=== PATIENT | male | born 1935 | race Caucasian/White ===

== ENCOUNTER 2020-12-10 09:20 | Emergency (ER) | payer MEDICARE ==
[~2020-12-10] VITALS: Ht 167.6 cm; Wt 77.3 kg
[2020-12-10 09:48] LABS: GLUCOSE,POINT OF CARE 425 MG/DL (70-110)
[2020-12-10] MEDS ORDERED: SODIUM CHLORIDE 0.9% 2,000 ML IV ONE (10:00)
[2020-12-10] MEDS ORDERED: INSULIN REGULAR, HUMAN 100 UNITS/ML IVP ONE (10:00)
[2020-12-10 10:10] LABS: BASOPHILS % (AUTO) 0.5 % (0.0-2.0); EOSINOPHILS % (AUTO) 2.1 % (1.0-6.0); HEMATOCRIT 39.7 % (41-53); LYMPHOCYTES # (AUTO) 2.2 K/uL (1.0-4.8); LYMPHOCYTES % (AUTO) 13.1 % (22.0-44.0); MEAN CORPUSCULAR HEMOGLOBIN 29.3 pg (26.0-34.0); MEAN CORPUSCULAR HGB CONC 32.6 G/dL (31.0-37.0); MEAN CORPUSCULAR VOLUME 90 fL (80-100); MONOCYTES # (AUTO) 1.1 K/uL (0.1-1.0); MONOCYTES % (AUTO) 6.3 % (2.0-9.0); NEUTROPHILS # (AUTO) 13.1 K/uL (1.8-7.7); PLATELET COUNT (AUTO) 155 K/uL (150-450); RED BLOOD CELL COUNT(AUTO) 4.42 MIL/uL (4.50-5.90)
[2020-12-10 10:28] LABS: ALANINE AMINOTRANSFERASE 34 U/L (12-78); ALBUMIN 3.4 g/dL (3.4-5.0); ALKALINE PHOSPHATASE 56 U/L (46-116); ANION GAP 8 mmol/L (8-16); ASPARTATE AMINOTRANSFERASE 14 U/L (15-37); BILIRUBIN,TOTAL 0.3 mg/dL (0.1-1.0); CALCIUM, TOTAL 8.9 mg/dL (8.8-10.5); CARBON DIOXIDE 25 mmol/L (22-29); CHLORIDE 99 mmol/L (98-107); CREATININE 1.51 mg/dL (0.60-1.30); GLOMERULAR FILTR. RATE CALC 44 mL/min (>60); GLUCOSE,RANDOM 394 mg/dL (70-110); LIPASE 124 U/L (73-393); POTASSIUM 3.6 mmol/L (3.5-5.1); SODIUM SERUM 132 mmol/L (136-145); UREA NITROGEN, BLOOD 30 mg/dL (7-18)
[2020-12-10 11:00] LABS: ACETONE,BLOOD NEGATIVE (NEGATIVE)
[2020-12-10 11:10] LABS: GLUCOSE,POINT OF CARE 255 MG/DL (70-110)
[2020-12-10 11:54] VITALS: BP 110/72
[2020-12-10 12:47] LABS: GLUCOSE,POINT OF CARE 249 MG/DL (70-110)
[2020-12-10 13:33] LABS: APPEARANCE,URINE CLEAR (CLEAR); BILIRUBIN,URINE NEGATIVE (NEGATIVE); GLUCOSE, URINE (UA) >=1000 mg/dL (NEGATIVE); KETONES,URINE NEGATIVE (NEGATIVE); LEUKOCYTE ESTERASE ,URINE NEGATIVE (NEGATIVE); NITRATE,URINE NEGATIVE (NEGATIVE); OCCULT BLOOD,URINE NEGATIVE (NEGATIVE); PH,URINE 5.5 (5.0-8.0); PROTEIN,URINE NEGATIVE (NEGATIVE); UROBILINOGEN,URINE 0.2 mg/dL (<=1.0)
[2020-12-10 13:47] LABS: AMPHET/METH SCREEN,URINE NEGATIVE (NEGATIVE); BARBITURATE SCREEN, URINE NEGATIVE (NEGATIVE); BENZODIAZEPINES SCREEN,URINE NEGATIVE (NEGATIVE); CANNABINOID SCREEN,URINE NEGATIVE (NEGATIVE); COCAINE SCREEN,URINE NEGATIVE (NEGATIVE); METHADONE SCREEN, URINE NEGATIVE (NEGATIVE); OPIATE SCREEN,URINE NEGATIVE (NEGATIVE)
[2020-12-10 13:48] LABS: RBC,URINE None Seen /HPF (0-2); WBC,URINE None Seen /HPF (0-5)
[2020-12-10 13:49] LABS: BACTERIA,URINE None Seen /HPF (None Seen); SQUAMOUS EPITHELIAL CELL,UR Few /LPF (None Seen)
[2020-12-10 13:58] LABS: PHENCYCLIDINE SCREEN,URINE NEGATIVE (NEGATIVE)
== END 2020-12-10 13:26 | disposition home or self-care (01) ==
LOC: EMS 09:23
DX: E11.65 Type 2 diabetes mellitus with hyperglycemia (principal); E86.0 Dehydration
CPT/HCPCS: 36415; 71045; 80053; 80307; 81001; 82009; 82962; 83690; 83735; 84484; 85025; 93005; 96361; 96374; 99285; G0480; J1815; J7030

== ENCOUNTER 2025-07-08 09:43 | Emergency (ER) | payer MEDICARE ==
[~2025-07-08] VITALS: Ht 172.7 cm; Wt 63.6 kg
[2025-07-08 09:53] VITALS: TEMP 98.605328
[2025-07-08] MEDS: FLUORESCEIN SODIUM 1 MG STRIP OD ONE (11:01)
[2025-07-08] MEDS: PROPARACAINE HCL 0.5% 15 ML OPHTHALMIC SOLUTION OD ONE (11:01)
[2025-07-08] MEDS: MORPHINE SULFATE 2 MG/ML SYRINGE IVP ONE (11:03)
[2025-07-08 11:04] LABS: PLATELET COUNT (AUTO) 194 K/uL (150-450); RED BLOOD CELL COUNT(AUTO) 4.68 MIL/uL (4.50-5.90); RED CELL DISTRIBUTION WIDTH 13.7 % (11.5-14.5); WHITE BLOOD COUNT (AUTO) 9.5 K/uL (4.5-11.0)
[2025-07-08 11:11] LABS: CALCIUM, TOTAL 9.0 mg/dL (8.8-10.5); CREATININE 0.95 mg/dL (0.60-1.30); GLOMERULAR FILTR. RATE CALC > 60 mL/min (>60); GLUCOSE,RANDOM 197 mg/dL (70-110); SODIUM SERUM 138 mmol/L (136-145); UREA NITROGEN, BLOOD 27 mg/dL (7-18)
[2025-07-08] MEDS: TIMOLOL MALEATE 0.5% 5 ML OPHTHALMIC SOLUTION OD ONE (12:09)
[2025-07-08] MEDS: DORZOLAMIDE HCL 2% 10 ML OPHTHALMIC SOLUTION OD ONE (12:09)
[2025-07-08] MEDS: PILOCARPINE HCL 1% 15 ML OPHTHALMIC SOLUTION OD ONE ×2 (12:10→12:50)
[2025-07-08] MEDS: BRIMONIDINE TARTRATE 0.2% 5 ML OPHTHALMIC SOLUTION OD ONE (12:10)
[2025-07-08] MEDS: DORZOLAMIDE/TIMOLOL 2-0.5% [22.3-6.8MG/ML] 10 ML OPHTHALMIC SOLUTION OD ONE (15:10)
[2025-07-08] MEDS: LATANOPROST 0.005% 2.5 ML OPHTHALMIC SOLUTION OD ONE (15:10)
[2025-07-08 18:34] VITALS: BP 132/71; PULSE 71; RESP 15; O2SAT 98
[2025-07-08] MEDS ORDERED: PRED5DRO25 OU (19:24)
[2025-07-08] MEDS ORDERED: ACET250T31 PO (19:24)
== END 2025-07-08 19:37 | disposition home or self-care (01) ==
LOC: EMS 09:43
DX: S05.11XA Contusion of eyeball and orbital tissues, right eye, initial encounter (principal); H40.31X0 Glaucoma secondary to eye trauma, right eye, stage unspecified; E11.9 Type 2 diabetes mellitus without complications; X58.XXXA Exposure to other specified factors, initial encounter; Y93.89 Activity, other specified; Y92.89 Other specified places as the place of occurrence of the external cause; Y99.8 Other external cause status
CPT/HCPCS: 99285; 96374; 96375; 80048; 85025; 36415; J1120; J2270